=== PATIENT | male | born 1975 | race Caucasian/White ===

== ENCOUNTER 2019-06-04 14:05 | Emergency (ER) | payer OTHER ==
--- NOTE | 2019-06-04 15:18 | EDM.PDOC ---
ED HPI GENERAL MEDICAL PROBLEM - General Chief Complaint: Genitourinary Problem Stated Complaint: BLOOD IN SEMEN AND SWOLLEN RT TESTICLE Time Seen by Provider: 06/04/19 14:09 Source of Information: Reports: Patient History Limitations: Reports: No Limitations - History of Present Illness INITIAL COMMENTS - FREE TEXT/NARRATIVE: HISTORY AND PHYSICAL: History of present illness: Patient is a 44-year-old male who presents to the ED today with concern of right testicular pain/swelling as well as blood in his semen. Patient states this is been ongoing since , so approximately 5 days. Patient states he was seen by his primary care provider on and was told he had epididymitis. Patient states at that time he had received lab work, was referred to urology, and urine tests to test for STDs. Patient states he has been with the same partner for several years so his risk for STD is low. Patient states he has had epididymitis in the past but he did not have as much testicular swelling at that time. Patient states he was placed on levofloxacin and has taken a total of 3 doses since then but is concerned because he continues to have blood in his semen. Patient denies fever, chills, chest pain, shortness of breath, or cough. Denies headache, neck stiff ness, change in vision, syncope, or near syncope. Denies nausea, vomiting, abdominal pain, diarrhea, constipation, or dysuria. Has not noted any blood in urine or stool. Patient has been eating and drinking appropriately. Review of systems: As per history of present illness and below otherwise all systems reviewed and negative. Past medical history: As per history of present illness and as reviewed below otherwise noncontributory. Surgical history: As per history of present illness and as reviewed below otherwise noncontributory. Social history: See social history for further information Family history: As per history of present illness and as reviewed below otherwise noncontributory. Physical exam: General: Patient is alert, oriented, and in no acute distress. Patient sitting comfortably on exam table. HEENT: Atraumatic, normocephalic, pupils equal and reactive bilaterally, negative for conjunctival pallor or scleral icterus, mucous membranes moist, TMs normal bilaterally, throat clear, neck supple, nontender, trachea midline. No drooling or trismus noted. No meningeal signs. No hot potato voice noted. Lungs: Clear to auscultation, breath sounds equal bilaterally, chest nontender. Heart: S1S2, regular rate and rhythm without overt murmur Abdomen: Soft, nondistended, nontender. Negative for masses or hepatosplenomegaly. Negative for costovertebral tenderness. Pelvis: Stable nontender. Genitourinary: Negative for penile drainage. The right testicle is moderately swollen with pain to palpation of the epididymitis. Left testicle without masses. No rashes or lesions noted. Rectal: Deferred. Skin: Intact, warm, dry. No lesions or rashes noted. Extremities: Atraumatic, negative for cords or calf pain. Neurovascular unremarkable. Neuro: Awake, alert, oriented. Cranial nerves II through XII unremarkable. Cerebellum unremarkable. Motor and sensory unremarkable throughout. Exam nonfocal. Notes: Discussed importance for follow-up with a primary care provider or urologist. Voices understanding and is agreeable to plan of care. Denies any further questions or concerns at this time. Diagnostics: UA, Gonorrhea and chlamydia, Testicular US Therapeutics: None Prescription: Tramadol (#8) (Patient already on levofloxacin) Impression: Epididymitis, right Plan: 1. Continue taking the levofloxacin antibiotic that has been prescribed to you already. Take medication as prescribed for severe pain. Do not use and operate machinery or drive. Caution using outside of the home. 2. You can decrease physical activity, apply scrotal support and elevation as directed for pain and discomfort. 3. You can also use ice 15 minutes on 15 minutes off as directed for pain and discomfort. 4. Alternate ibuprofen and Tylenol as directed for pain and discomfort. 5. Return to the ED as needed and as discussed. Follow-up with your primary care provider and urologist as scheduled and as discussed. Definitive disposition and diagnosis as appropriate pending reevaluation and review of above. right testicle Pain Score (Numeric/FACES): 8 - Related Data Allergies Allergy/AdvReac Type Severity Reaction Status Date / Time Sulfa (Sulfonamide Allergy Other Verified 06/04/19 14:26 Antibiotics) Home Meds: Home Meds Lisinopril 10 mg PO DAILY 10/22/17 [History] hydroCHLOROthiazide [Hydrochlorothiazide] 50 mg PO DAILY 10/22/17 [History] Levofloxacin 500 mg PO DAILY 06/04/19 [History] atorvaSTATin [Lipitor] 10 mg PO DAILY 06/04/19 [History] traMADol [Ultram] 50 mg PO Q6H PRN #8 tab 06/04/19 [Rx] Past Medical History HEENT History: Reports: None Cardiovascular History: Reports: High Cholesterol, Hypertension Respiratory History: Reports: None Gastrointestinal History: Reports: None Genitourinary History: Reports: None Musculoskeletal History: Reports: None Neurological History: Reports: None Psychiatric History: Reports: None Endocrine/Metabolic History: Reports: None Hematologic History: Reports: None Immunologic History: Reports: None Oncologic (Cancer) History: Reports: None Dermatologic History: Reports: None - Infectious Disease History Infectious Disease History: Reports: Chicken Pox - Past Surgical History Head Surgeries/Procedures: Reports: None HEENT Surgical History: Reports: None Cardiovascular Surgical History: Reports: None Respiratory Surgical History: Reports: None GI Surgical History: Reports: None Male Surgical History: Reports: None Endocrine Surgical History: Reports: None Neurological Surgical History: Reports: None Musculoskeletal Surgical History: Reports: None Oncologic Surgical History: Reports: None Dermatological Surgical History: Reports: None Social & Family History - Family History Family Medical History: Noncontributory - Tobacco Use Smoking Status *Q: Current Every Day Smoker Years of Tobacco use: 24 Packs/Tins Daily: 1 - Caffeine Use Caffeine Use: Reports: Energy Drinks, Soda - Recreational Drug Use Recreational Drug Use: No ED ROS GENERAL - Review of Systems Review Of Systems: Comprehensive ROS is negative, except as noted in HPI. ED EXAM, GENERAL - Physical Exam Exam: See Below (see dictation) Course - Vital Signs Last Recorded V/S: Last Vital Signs Temp 96.8 F L 06/04/19 14:29 Pulse 90 06/04/19 14:29 Resp 18 06/04/19 14:29 BP 155/90 H 06/04/19 14:29 Pulse Ox 98 06/04/19 14:29 - Orders/Labs/Meds Orders: Active Orders 24 hr Category Date Time Status CHLAMYDIA AND GONORRHEA BY TMA Stat Lab 06/04/19 15:37 Received Labs: Laboratory Tests 06/04/19 Range/Units 14:35 Urine Color YELLOW Urine Appearance CLEAR Urine pH 7.5 (5.0-8.0) Ur Specific [place] 1.020 (1.001-1.035) Urine Protein NEGATIVE (NEGATIVE) mg/dL Urine Glucose (UA) NEGATIVE (NEGATIVE) mg/dL Urine Ketones NEGATIVE (NEGATIVE) mg/dL Urine Occult Blood NEGATIVE (NEGATIVE) Urine Nitrite NEGATIVE (NEGATIVE) Urine Bilirubin NEGATIVE (NEGATIVE) Urine Urobilinogen 0.2 (<2.0) EU/dL Ur Leukocyte Esterase NEGATIVE (NEGATIVE) Departure - Departure Time of Disposition: 16:05 Disposition: Home, Self-Care 01 Clinical Impression: Acute epididymitis - Discharge Information Prescriptions: traMADol [Ultram] 50 mg PO Q6H PRN #8 tab PRN Reason: Pain (Severe 7-10) Referrals: Cm Ruff MD [Primary Care Provider] - Forms: ED Department Discharge Additional Instructions: The following information is given to patients seen in the emergency department who are being discharged to home. This information is to outline your options for follow-up care. We provide all patients seen in our emergency department with a follow-up referral. The need for follow-up, as well as the timing and circumstances, are variable depending upon the specifics of your emergency department visit. If you don't have a primary care physician on staff, we will provide you with a referral. We always advise you to contact your personal physician following an emergency department visit to inform them of the circumstance of the visit and for follow-up with them and/or the need for any referrals to a consulting specialist. The emergency department will also refer you to a specialist when appropriate. This referral assures that you have the opportunity for follow-up care with a specialist. All of these measure are taken in an effort to provide you with optimal care, which includes your follow-up. Under all circumstances we always encourage you to contact your private physician who remains a resource for coordinating your care. When calling for follow-up care, please make the office aware that this follow-up is from your recent emergency room visit. If for any reason you are refused follow-up, please contact the [facility] at and asked to speak to the emergency department charge nurse. [facility] [address] [place] [id number] [address] [address] 1. Continue taking the levofloxacin antibiotic that has been prescribed to you already. Take medication as prescribed for severe pain. Do not use and operate machinery or drive. Caution using outside of the home. 2. You can decrease physical activity, apply scrotal support and elevation as directed for pain and discomfort. 3. You can also use ice 15 minutes on 15 minutes off as directed for pain and discomfort. 4. Alternate ibuprofen and Tylenol as directed for pain and discomfort. 5. Return to the ED as needed and as discussed. Follow-up with your primary care provider and urologist as scheduled and as discussed. Sepsis Event Note - Evaluation Sepsis Screening Result: No Definite Risk - Focused Exam Vital Signs: Vital Signs Temp Pulse Resp BP Pulse Ox 06/04/19 14:29 96.8 F L 90 18 155/90 H 98 Date Exam was Performed: 06/04/19 Time Exam was Performed: 16:04 - My Orders Last 24 Hours: My Active Orders 06/04/19 15:37 CHLAMYDIA AND GONORRHEA BY TMA Stat - Assessment/Plan Last 24 Hours: My Active Orders 06/04/19 15:37 CHLAMYDIA AND GONORRHEA BY TMA Stat
--- NOTE | 2019-06-04 15:48 | US ---
Testicular ultrasound: Multiple real-time images of the testicles were obtained. Right epididymis is swollen and shows evidence of increased Doppler blood flow compatible with epididymitis. No intratesticular abnormality is seen. No hydrocele is seen. Arterial and venous blood flow are seen within the testicles. Measurements: Right chest: 3.9 x 2.3 x 3.4 cm Left testicle: 4.0 x 2.5 x 3.4 cm Impression: 1. Findings compatible with right-sided epididymitis. 2. No intratesticular abnormality is appreciated. Diagnostic code #3 This report was dictated in [place] Standard Time MTDD
== END 2019-06-04 16:18 | disposition home or self-care (01) ==
LOC: MW.ED 14:05
DX: N45.1 Epididymitis (principal); E78.00 Pure hypercholesterolemia, unspecified; I10 Essential (primary) hypertension; F17.210 Nicotine dependence, cigarettes, uncomplicated; Z88.2 Allergy status to sulfonamides; Z79.899 Other long term (current) drug therapy
CPT/HCPCS: 76870; 76870-26; 81003; 87491; 87591; 93976; 93976-26; 99284-25

== ENCOUNTER 2019-07-08 01:52 | Emergency (ER) | payer OTHER ==
[2019-07-08] MEDS: Aspirin 81 MG Tab.Chew PO ONE (02:09)
--- NOTE | 2019-07-08 02:10 | EDM.PDOC ---
ED HPI GENERAL MEDICAL PROBLEM - General Chief Complaint: Cardiovascular Problem Stated Complaint: SHORTNESS OF BREATH, RAPID HEARTBEAT Time Seen by Provider: 07/08/19 02:05 Source of Information: Reports: Patient - History of Present Illness INITIAL COMMENTS - FREE TEXT/NARRATIVE: 44-year-old male presents to the ER secondary to chest pain, shortness of breath and palpitations. The patient states that he has a history of hypercholesterolemia and hypertension but no other significant medical history. He denies any recent drug use, alcohol use, fevers chills, coughing, or other acute complaints other than feeling off today. He states that he cannot describe it he just did not feel right for most of the day and then while he was sitting down watching TV he suddenly developed sudden onset bilateral arm tingling, chest pressure, a rapid bounding pulse and associated shortness of breath. He called EMS and by the time they got there he was feeling better. He decided to come in himself instead of having EMS transport him. chest Pain Score (Numeric/FACES): 0 - Related Data Allergies Allergy/AdvReac Type Severity Reaction Status Date / Time Sulfa (Sulfonamide Allergy Other Verified 07/08/19 02:03 Antibiotics) Home Meds: Home Meds hydroCHLOROthiazide [Hydrochlorothiazide] 50 mg PO DAILY 10/22/17 [History] atorvaSTATin [Lipitor] 10 mg PO DAILY 06/04/19 [History] traMADol [Ultram] 50 mg PO Q6H PRN #8 tab 06/04/19 [Rx] Losartan [Cozaar] 0 mg PO BID 07/08/19 [History] Past Medical History HEENT History: Reports: None Cardiovascular History: Reports: High Cholesterol, Hypertension Respiratory History: Reports: None Gastrointestinal History: Reports: None Genitourinary History: Reports: None Musculoskeletal History: Reports: None Neurological History: Reports: None Psychiatric History: Reports: None Endocrine/Metabolic History: Reports: None Hematologic History: Reports: None Immunologic History: Reports: None Oncologic (Cancer) History: Reports: None Dermatologic History: Reports: None - Infectious Disease History Infectious Disease History: Reports: Chicken Pox - Past Surgical History Head Surgeries/Procedures: Reports: None HEENT Surgical History: Reports: None Cardiovascular Surgical History: Reports: None Respiratory Surgical History: Reports: None GI Surgical History: Reports: None Male Surgical History: Reports: None Endocrine Surgical History: Reports: None Neurological Surgical History: Reports: None Musculoskeletal Surgical History: Reports: None Oncologic Surgical History: Reports: None Dermatological Surgical History: Reports: None Social & Family History - Family History Family Medical History: Noncontributory - Caffeine Use Caffeine Use: Reports: Energy Drinks, Soda ED ROS GENERAL - Review of Systems Review Of Systems: See Below (Positive for chest pain, positive shortness of breath, positive for tachycardia, negative fevers, negative for chills, negative hemoptysis, all other Positives and pertinent negatives as per HPI. All other pertinent systems were reviewed and are negative) ED EXAM, GENERAL - Physical Exam Exam: See Below Free Text/Narrative:: Constitutional: No acute distress, Non-toxic appearance HEENT.: Normocephalic, Atraumatic, PERRL, EOMI, External ears are atraumatic, nares are patent without epistaxis Neck: Normal range of motion, Trachea Midline, No stridor Respiratory.: No respiratory distress, No tachypnea, Lungs Clear to Auscultation bilaterally without wheezes, rales, or rhonchi Cardiovascular.: Regular rate and Rhythm without murmurs, rubs, or gallops, good peripheral perfusion GI: Abdomen soft and non tender, mildly obese Genital Urinary: Deferred Musculoskeletal: Good range of motion. All 4 extremities present and atraumatic , no edema Back: Full Range of Motion Skin: Warm, Dry, Color is ethnicity appropriate, No acute rash. Lymphatic: No lymphadenopathy noted Neurological: Alert, Awake and oriented x 3, No focal deficits noted appreciate , GCS 15 Psych: Affect, Judgement, mood normal Course - Vital Signs Text/Narrative:: Differential diagnosis includes acute coronary syndrome, and cardiac dysrhythmia considering that the patient symptomology has currently resolved - as such other malignant pathology such as pulmonary infarction, pulmonary embolism, pulmonary masses, etc. are highly unlikely. ECG The ECG was read and interpreted by me. There are p waves before every QRS with a ventricular rate of 70. The SC, QRS, and QT intervals are all normal. [place] is normal. ST segments are baseline and the T wave morphology is normal. Final interpretation is a normal Sinus rhythm and a normal ECG. Chest x-ray is reviewed and interpreted by me -there are no pulmonary infiltrates, pleural effusions, pneumothorax, thoracic masses or any acute pathology. The patient was given a dose of aspirin 325 mg orally but no other ongoing medications at this time. The patient has a heart score of 3. Given this, the patient has been stable without any complaints during his entire stay here, and a negative work-up as of this dictation, current recommendations are that the patient can be discharged home with close outpatient follow-up with his PCP. Patient states his understanding and is comfortable with discharge. Last Recorded V/S: Last Vital Signs Temp 36.6 C 07/08/19 04:25 Pulse 73 07/08/19 04:25 Resp 14 07/08/19 04:25 BP 123/73 07/08/19 04:25 Pulse Ox 95 07/08/19 04:25 - Orders/Labs/Meds Labs: Laboratory Tests 07/08/19 07/08/19 07/08/19 Range/Units 02:10 02:10 03:55 WBC 10.40 (4.0-11.0) K/uL RBC 5.00 (4.50-5.90) M/uL Hgb 14.5 (13.0-17.0) g/dL Hct 43.5 (38.0-50.0) % MCV 87.0 (80.0-98.0) fL MCH 29.0 (27.0-32.0) pg MCHC 33.3 (31.0-37.0) g/dL RDW Std Deviation 41.0 (28.0-62.0) fl RDW Coeff of Nadine 13 (11.0-15.0) % Plt Count 239 (150-400) K/uL MPV 11.10 (7.40-12.00) fL Add Manual Diff YES Neutrophils % (Manual) 47 L (48.0-80.0) % Lymphocytes % (Manual) 43 H (16.0-40.0) % Monocytes % (Manual) 7 (0.0-15.0) % Eosinophils % (Manual) 3 (0.0-7.0) % Nucleated RBC % 0.0 /100WBC Absolute Seg Neuts 4.9 (1.4-5.7) Lymphocytes # (Manual) 4.5 H (0.6-2.4) Monocytes # (Manual) 0.7 (0.0-0.8) Eosinophils # (Manual) 0.3 (0.0-0.7) Nucleated RBCs # 0 K/uL Sodium 141 (136-148) mmol/L Potassium 3.2 L (3.5-5.1) mmol/L Chloride 101 (98-107) mmol/L Carbon Dioxide 31.2 (21.0-32.0) mmol/L BUN 16 (7.0-18.0) mg/dL Creatinine 1.1 (0.8-1.3) mg/dL Est Cr Clr Drug Dosing 90.33 mL/min Estimated GFR (MDRD) > 60.0 ml/min Glucose 115 H (74-106) mg/dL Calcium 8.7 (8.5-10.1) mg/dL Total Bilirubin 0.3 (0.2-1.0) mg/dL AST 30 (15-37) IU/L ALT 74 H (14-63) IU/L Alkaline Phosphatase 71 (46-116) U/L Troponin I < 0.050 < 0.050 (0.000-0.056) ng/mL Total Protein 7.0 (6.4-8.2) g/dL Albumin 3.7 (3.4-5.0) g/dL Globulin 3.3 (2.6-4.0) g/dL Albumin/Globulin Ratio 1.1 (0.9-1.6) Meds: Medications Discontinued Medications Generic Name Dose Route Start Last Admin Trade Name Raymonq PRN Reason Stop Dose Admin Aspirin 324 mg 07/08/19 02:04 07/08/19 02:09 Aspirin PO 07/08/19 02:05 324 mg ONETIME ONE Administration Departure - Departure Time of Disposition: 04:27 Disposition: Home, Self-Care 01 Condition: Good Clinical Impression: Chest pain, Palpitations Instructions: Nonspecific Chest Pain, Adult, Palpitations, [id number] Referrals: PCP,None [Primary Care Provider] - Forms: ED Department Discharge Sepsis Event Note - Focused Exam Vital Signs: Vital Signs Temp Pulse Resp BP Pulse Ox 07/08/19 04:25 36.6 C 73 14 123/73 95 07/08/19 03:30 68 140/83 07/08/19 03:00 76 132/73 98 07/08/19 02:41 156/91 H 07/08/19 02:26 82 154/94 H 96 07/08/19 02:11 89 18 170/105 H 98 07/08/19 02:10 36.7 C 98 18 166/100 H 99 Date Exam was Performed: 07/08/19 Time Exam was Performed: 04:25
[2019-07-08 02:36] LABS: BLOOD UREA NITROGEN,BUN 16 mg/dL (7.0-18.0); CARBON DIOXIDE,CO2 31.2 mmol/L (21.0-32.0); CHLORIDE,CL 101 mmol/L (98-107); GLUCOSE RANDOM 115 mg/dL (74-106); POTASSIUM,K 3.2 mmol/L (3.5-5.1); SODIUM,NA 141 mmol/L (136-148)
--- NOTE | 2019-07-08 02:49 | CR ---
INDICATION: Chest pain TECHNIQUE: Chest 1 view COMPARISON: None FINDINGS: Cardiovascular and mediastinum: Heart size and vasculature are normal in caliber and appearance. Lungs and pleural spaces: Lungs are clear. No sign of infiltrate or mass. No sign of pleural effusion. No pneumothorax. Bones and soft tissues: No significant findings. IMPRESSION: Unremarkable single view chest. Dictated by Abilio Arciniega MD @ Jul 08 2019 2:47AM Signed by Dr. Abilio Arciniega @ Jul 08 2019 2:48AM
== END 2019-07-08 04:32 | disposition home or self-care (01) ==
LOC: MW.ED 01:52
DX: R07.89 Other chest pain (principal); R00.2 Palpitations; I10 Essential (primary) hypertension; E78.00 Pure hypercholesterolemia, unspecified; Z88.2 Allergy status to sulfonamides; Z79.899 Other long term (current) drug therapy
CPT/HCPCS: 36415; 71045; 80053; 84484; 85025; 93005; 99285; A9270; 99283

== ENCOUNTER 2021-06-06 03:16 | Emergency (ER) | payer OTHER ==
[2021-06-06] MEDS ORDERED: Famotidine 20 MG/2 ML SDV IVPUSH ONE (03:46)
[2021-06-06] MEDS ORDERED: Ondansetron 4 MG/2 ML SDV IVPUSH ONE (03:46)
[2021-06-06] MEDS ORDERED: Sodium Chloride 0.9% 10 ML Syringe FLUSH PRN (03:46)
[2021-06-06] MEDS ORDERED: Sodium Chloride 0.9% 1,000 ML IV ONE (03:46)
[2021-06-06] MEDS ORDERED: Sodium Chloride 0.9% 2.5 ML Syringe FLUSH PRN (03:46)
[2021-06-06] MEDS ORDERED: Alum Hydro/Mag Hydro/Simeth XS 15 ML, Lidocaine 2% 5 ML PO ONE ×2 (03:49)
[2021-06-06 05:18] LABS: BLOOD UREA NITROGEN,BUN 19 mg/dL (7.0-18.0); CARBON DIOXIDE,CO2 31.7 mmol/L (21.0-32.0); CHLORIDE,CL 100 mmol/L (98-107); ESTIMATED GFR > 60.0 ml/min; GLUCOSE RANDOM 118 mg/dL (74-106); LIPASE 38 U/L (73-393); POTASSIUM,K 3.9 mmol/L (3.5-5.1); SODIUM,NA 139 mmol/L (136-148)
== END 2021-06-06 05:50 | disposition home or self-care (01) ==
LOC: MW.ED 03:16
DX: K29.01 Acute gastritis with bleeding (principal); E78.00 Pure hypercholesterolemia, unspecified; I10 Essential (primary) hypertension; Z88.2 Allergy status to sulfonamides; Z79.899 Other long term (current) drug therapy
CPT/HCPCS: 36415; 74176; 74176-26; 80053; 83690; 84484; 85025; 93005; 93010; 96374; 96375; 99284; 99284-25; A9270-GY; J2405; J3490; J7030

== ENCOUNTER 2023-11-16 04:44 | Emergency (ER) | payer SELFPAY ==
[2023-11-16 05:59] LABS: HEMATOCRIT 44.8 % (42.0-52.0); HEMOGLOBIN 15.6 g/dL (14.0-18.0); MEAN CORPUSCULAR HEMOGLOBIN 29.2 pg (28.0-32.0); MEAN CORPUSCULAR HGB CONC 34.8 g/dL (32.0-36.0); MEAN CORPUSCULAR VOLUME 83.7 fL (83.0-99.0); MEAN PLATELET VOLUME 11.2 fL (9.4-12.4); PLATELET COUNT,PLT 258 K/uL (150-400); RED BLOOD CELL COUNT 5.35 M/uL (4.52-5.90)
[2023-11-16 06:23] LABS: BAND ABSOLUTE MAN 0.32; BAND PERCENT MAN 2 %; SEG NEUTROPHILS ABSOLUTE MAN 9.07 K/uL (1.80-7.70); SEG NEUTROPHILS PERCENT MAN 56 % (41-71)
[2023-11-16 06:24] LABS: LYMPHOCYTES ABSOLUTE MAN 5.18 K/uL (1.00-4.80); LYMPHOCYTES PERCENT MAN 32 % (24-44); MONOCYTES ABSOLUTE MAN 1.62 K/uL (0.00-0.80); MONOCYTES PERCENT MAN 10 % (0-8)
[2023-11-16 06:28] LABS: A/G RATIO 1.1 (0.9-1.6); ALBUMIN 3.7 g/dL (3.4-5.0); BILIRUBIN TOTAL 0.3 mg/dL (0.2-1.0); CALCIUM 9.2 mg/dL (8.5-10.1); CARBON DIOXIDE,CO2 25.2 mmol/L (21.0-32.0); CREATININE 0.9 mg/dL (0.8-1.3); EST CRCL DRUG DOSING (CG) 105.9 mL/min; POTASSIUM,K 3.8 mmol/L (3.5-5.1); PROTEIN TOTAL,TP 7.2 g/dL (6.4-8.2)
[2023-11-16 06:51] LABS: APPEARANCE,URINE CLEAR; BILIRUBIN,URINE NEGATIVE (NEGATIVE); COLOR,URINE YELLOW; GLUCOSE,URINE NEGATIVE (NEGATIVE); KETONES,URINE NEGATIVE (NEGATIVE); LEUKOCYTE ESTERASE,URINE NEGATIVE (NEGATIVE); NITRITE,URINE NEGATIVE (NEGATIVE); OCCULT BLOOD,URINE NEGATIVE (NEGATIVE); PROTEIN,URINE NEGATIVE (NEGATIVE); UROBILINOGEN,URINE 0.2 EU/dL (<2.0)
[2023-11-16 07:02] LABS: CORONAVIRUS COVID-19 NAA NEGATIVE (NEGATIVE); INFLUENZA A NAA NEGATIVE (NEGATIVE); INFLUENZA B NAA NEGATIVE (NEGATIVE); RESPIRATORY SYNCYTIAL VIR NAA NEGATIVE (NEGATIVE)
[2023-11-16] MEDS ORDERED: Naloxone 0.4 MG/ML SDV IVPUSH PRN (07:20)
[2023-11-16] MEDS: Iopamidol 755 MG/ML 500 ML Multipack Bottle IVPUSH ONE (07:40)
[2023-11-16] MEDS: Morphine 4 MG/ML Syringe IVPUSH PRN (07:53)
[2023-11-16] MEDS: Ketorolac 30 MG/ML SDV IVPUSH ONE (07:54)
[2023-11-16] MEDS: Ondansetron 4 MG/2 ML SDV IVPUSH ONE (07:54)
[2023-11-16] MEDS: Sodium Chloride 0.9% 10 ML Syringe FLUSH PRN (07:55)
[2023-11-16] MEDS: Sodium Chloride 0.9% 1,000 ML IV ONE (07:55)
[2023-11-16] MEDS: Sodium Chloride 0.9% 2.5 ML Syringe FLUSH PRN (07:55)
[2023-11-16] MEDS: metroNIDAZOLE/Normal Saline 500 MG in Premix Bag 1 BAG IV ONE (09:28)
[2023-11-16] MEDS: Ciprofloxacin in D5W 400 MG in Premix Bag 1 BAG IV STA (09:29)
== END 2023-11-16 10:42 | disposition home or self-care (01) ==
LOC: MW.ED 04:44
DX: K57.32 Diverticulitis of large intestine without perforation or abscess without bleeding (principal); N20.0 Calculus of kidney; I10 Essential (primary) hypertension; E78.00 Pure hypercholesterolemia, unspecified; Z79.899 Other long term (current) drug therapy; Z88.2 Allergy status to sulfonamides; Z75.8 Other problems related to medical facilities and other health care
CPT/HCPCS: 0241U; 36415; 74177; 80053; 81003; 83690; 85025; 96361; 96365; 96368; 96375; 96376; 99284; J0744; J1836; J1885; J2270; J2405; J3490; J7030; Q9967